=== PATIENT | female | born 1985 | race Caucasian/White ===

== ENCOUNTER 2016-07-05 09:05 | Day surgery (SDC) | payer MEDICAID ==
[2016-07-05 09:31] LABS: APPEARANCE,URINE CLOUDY; BILIRUBIN,URINE NEGATIVE (NEGATIVE); GLUCOSE, URINE NEGATIVE (NEGATIVE); KETONES,URINE NEGATIVE (NEGATIVE); LEUKOCYTE ESTERASE,URINE SMALL (NEGATIVE); NITRITE,URINE NEGATIVE (NEGATIVE); PROTEIN,URINE NEGATIVE (NEGATIVE); UROBILINOGEN,URINE NEGATIVE mg/dL (<2.0)
[2016-07-05] MEDS ORDERED: FAMOTIDINE INJ/PF 20 MG/2 ML SDV IV ONE (10:41)
[2016-07-05] MEDS ORDERED: ALBUTEROL SULFATE 0.083% NEB 2.5 MG/3 ML AMPUL NEB ONE (10:43)
[2016-07-05] MEDS ORDERED: SCOPOLAMINE HYDROBROMIDE 1.5 MG PATCH.TD72 ONE (10:44)
[2016-07-05] MEDS ORDERED: FENTANYL CITRATE INJ/PF 100 MCG/2 ML AMPUL ONE ×2 (10:46)
[2016-07-05] MEDS ORDERED: MIDAZOLAM 2 MG/2 ML INJ ONE (10:47)
[2016-07-05] MEDS ORDERED: PROPOFOL INJ 200 MG/20 ML VIAL IV ONE (10:47)
[2016-07-05 11:03] LABS: HEMATOCRIT 28.5 % (36.0-47.0); HEMOGLOBIN 9.2 g/dL (12.0-15.5); HGB HCT DIFFERENCE -0.9; MEAN CORPUSCULAR HEMOGLOBIN 23.6 pg (27.0-33.4); MEAN CORPUSCULAR HGB CONC 32.2 g/dL (32.0-36.0); MEAN CORPUSCULAR VOLUME 73 fl (80-97); RED CELL DISTRIBUTION WIDTH 15.8 % (11.5-14.0); WHITE BLOOD COUNT 6.4 10^3/uL (4.0-10.5)
--- NOTE | 2016-07-05 11:57 | Operative Report ---
Operative Report DATE OF SURGERY: 07/05/16 PREOPERATIVE DIAGNOSIS: Incomplete AB POSTOPERATIVE DIAGNOSIS: Same OPERATION: Suction D&C hysteroscopy SURGEON: SHAMA CHOE ANESTHESIA: GA TISSUE REMOVED OR ALTERED: Uterine contents COMPLICATIONS: None ESTIMATED BLOOD LOSS: 50 mL INTRAOPERATIVE FINDINGS: Retained contents and the uterus PROCEDURE: Patient was taken to the OR and placed in supine position. Gen. anesthesia was induced. She is placed in low dorsal lithotomy position. Her perineum and vagina were prepared and draped in sterile fashion. A weighted speculum was placed into the vagina and the anterior lip cervix was grasped with tenaculum. Sound was to 8 cm before and after the case. Hysteroscopy was attempted but too much blood was present and uterine cavity to obtain a picture. Next a size 8 suction curet was used to evacuate the uterine contents with a return of products of conception. A gentle sharp curettage was then performed. Hysteroscopy was attempted once again and the view showed an empty uterine cavity. All instruments were removed. Patient was placed back in supine position taken recovery room in stable condition.
[2016-07-05] MEDS ORDERED: ALBUTEROL SULFATE HFA (90 MCG/PUFF) 200 PUFF/8.5 GM MDI IH ONE (12:07)
[2016-07-05] MEDS ORDERED: IBUPROFEN 800 MG TABLET PO PRN (12:12)
[2016-07-05] MEDS ORDERED: RINGERS SOLUTION,LACTATED 1,000 ML IV PRN (12:12)
[2016-07-05] MEDS ORDERED: KETOROLAC TROMETHAMINE INJ/PF 30 MG/1 ML SDV IV PRN (12:12)
[2016-07-05] MEDS ORDERED: OXYCODONE-ACETAMINOPHEN 5-325 MG TABLET PO PRN ×3 (12:13→12:17)
[2016-07-05] MEDS ORDERED: FENTANYL CITRATE INJ/PF 100 MCG/2 ML AMPUL IV PRN ×3 (12:17)
[2016-07-05] MEDS ORDERED: PROMETHAZINE HCL INJ 25 MG/1 ML VIAL IV PRN ×2 (12:17)
[2016-07-05] MEDS ORDERED: DIPHENHYDRAMINE HCL 50 MG/ML VIAL IV PRN (12:17)
[2016-07-05] MEDS ORDERED: MEPERIDINE HCL/PF INJ 25 MG/1 ML DISP.SYRIN IV PRN (12:17)
[2016-07-05 14:49] VITALS: BP 105/63
[2016-07-05] MEDS ORDERED: SUCCINYLCHOLINE CHLORIDE INJ 200 MG/10 ML VIAL ONE (15:30)
[2016-07-05] MEDS ORDERED: DEXAMETHASONE SOD PHOSPHATE INJ 4 MG/1 ML VIAL ONE (15:30)
[2016-07-05] MEDS ORDERED: LIDOCAINE 2% INJ-PF (20 MG/ML) 10 ML AMPUL ONE (15:30)
[2016-07-05] MEDS ORDERED: KETOROLAC TROMETHAMINE 60 MG/2 ML SDV ONE (15:30)
[2016-07-05] MEDS ORDERED: ONDANSETRON HCL INJ/PF 4 MG/2 ML SDV ONE (15:30)
== END 2016-07-05 14:40 | disposition home or self-care (01) ==
LOC: OROUT 09:05
PROVIDERS: ATTEND Obstetrics & Gynecology
PROC: 0UDB8ZX Extraction of Endometrium, Via Natural or Artificial Opening Endoscopic, Diagnostic (ICD-10-PCS; principal; 2016-07-05 11:00)
DX: O03.4 Incomplete spontaneous abortion without complication (principal); N93.8 Other specified abnormal uterine and vaginal bleeding; J45.909 Unspecified asthma, uncomplicated; I10 Essential (primary) hypertension; F17.210 Nicotine dependence, cigarettes, uncomplicated; Z79.899 Other long term (current) drug therapy; Z88.5 Allergy status to narcotic agent
CPT/HCPCS: 86900; 86901; 36415; 86850; 85027; 81025; 81001; 88305 ×2; 94640; 59812; J2250; J1100; J1885; J3010; J3490 ×3; J0330; J2405; J2704; S0028

== ENCOUNTER 2016-12-26 10:28 | Emergency (ER) | payer SELFPAY ==
[2016-12-26] MEDS ORDERED: IPRATROPIUM/ALBUTEROL 0.5-2.5 MG/3 ML AMPUL NEB ONE (10:51)
[2016-12-26] MEDS ORDERED: ACETAMINOPHEN 325 MG TABLET PO PRN (10:54)
--- NOTE | 2016-12-26 11:03 | ER Document Report ---
ED General - General Chief Complaint: Abdominal Pain Stated Complaint: ABDOMINAL PAIN Time Seen by Provider: 12/26/16 10:47 TRAVEL OUTSIDE OF THE U.S. IN LAST 30 DAYS: No - HPI Patient complains to provider of: Abdominal pain positive chest congestion Notes: Patient coming in for abdominal pain states ongoing for the last few days also states congestion for the last 3 days denies fevers chills nausea vomiting or productive cough. Patient does smoke. Patient states currently trying to quit no care for this visit. No complications of previous pregnancies no vaginal bleeding. States diffuse abdominal pain. No dysuria - Related Data Allergies/Adverse Reactions: codeine [Codeine] Adverse Reaction (Intermediate, Verified 04/22/15 11:58) Past Medical History - Social History Smoking Status: Current Every Day Smoker Chew tobacco use (# tins/day): - 1/2 ppd Frequency of alcohol use: Rare Drug Abuse: None Family History: Reviewed & Not Pertinent - Past Medical History Cardiac Medical History: Denies: Hx Coronary Artery Disease, Hx Heart Attack, Hx Hypertension Pulmonary Medical History: Reports: Hx Asthma Denies: Hx Bronchitis, Hx COPD, Hx Pneumonia Neurological Medical History: Denies: Hx Cerebrovascular Accident, Hx Seizures Renal/ Medical History: Denies: Hx Peritoneal Dialysis Musculoskeltal Medical History: Denies Hx Arthritis Past Surgical History: Reports: Hx Gynecologic Surgery - d&c (April 2013) - Immunizations Immunizations up to date: Yes Hx Diphtheria, Pertussis, Tetanus Vaccination: Yes Hx Pneumococcal Vaccination: 09/13/11 Review of Systems - Review of Systems Constitutional: No symptoms reported EENT: No symptoms reported Cardiovascular: No symptoms reported Respiratory: No symptoms reported Gastrointestinal: Abdominal pain Genitourinary: No symptoms reported Female Genitourinary: No symptoms reported Musculoskeletal: No symptoms reported Skin: No symptoms reported Hematologic/Lymphatic: No symptoms reported Neurological/Psychological: No symptoms reported -: Yes All other systems reviewed and negative Physical Exam - Vital signs Vitals: Temp Pulse Resp BP Pulse Ox 98.9 F 66 16 123/69 100 12/26/16 10:30 12/26/16 10:30 12/26/16 10:30 12/26/16 10:30 12/26/16 10:30 Interpretation: Normal - General General appearance: Appears well, Alert - HEENT Head: Normocephalic, Atraumatic Eyes: Normal Pupils: PERRL - Respiratory Respiratory status: No respiratory distress Chest status: Nontender Breath sounds: Wheezing Chest palpation: Normal - Cardiovascular Rhythm: Regular Heart sounds: Normal auscultation Murmur: No - Abdominal Inspection: Normal Distension: No distension Bowel sounds: Normal Tenderness: Nontender Organomegaly: No organomegaly - Back Back: Normal, Nontender - Extremities General upper extremity: Normal inspection, Nontender, Normal color, Normal ROM , Normal temperature General lower extremity: Normal inspection, Nontender, Normal color, Normal ROM , Normal temperature, Normal weight bearing. No: Jung's sign - Neurological Neuro grossly intact: Yes Cognition: Normal Orientation: AAOx4 [place] Coma Scale Eye Opening: Spontaneous [place] Coma Scale Verbal: Oriented [place] Coma Scale Motor: Obeys Commands [place] Coma Scale Total: 15 Speech: Normal Motor strength normal: LUE, RUE, LLE, RLE Sensory: Normal - Psychological Associated symptoms: Normal affect, Normal mood - Skin Skin Temperature: Warm Skin Moisture: Dry Skin Color: Normal Course - Re-evaluation Re-evalutation: 12/26/16 11:01 We will check basic lab work urinalysis ultrasound patient does have wheezing on examination we will give DuoNeb. 12/26/16 17:22 Ultrasound shows 7 week fetus. Patient was given copy of her lab results recommend stop smoking. Patient will be given a bronchodilator for home patient was discharged home - Vital Signs Vital signs: Temp Pulse Resp BP Pulse Ox 98.9 F 66 16 123/69 100 12/26/16 10:30 12/26/16 10:30 12/26/16 10:30 12/26/16 10:30 12/26/16 10:30 - Laboratory Result Diagrams: 12/26/16 10:56 12/26/16 10:56 Laboratory results interpreted by me: 12/26/16 12/26/16 12/26/16 10:56 10:56 10:56 WBC 11.2 H Hgb 11.2 L Hct 34.7 L MCV 70 L MCH 22.7 L RDW 18.3 H Creatinine 0.48 L Beta HCG, Quant 357346.00 H Ur Leukocyte Esterase TRACE H Discharge - Discharge Clinical Impression: Smoker, Wheezing Qualifiers: Weeks of gestation: less than 8 weeks Qualified Code(s): Z3A.01 - Less than 8 weeks gestation of Condition: Good Disposition: HOME, SELF-CARE Instructions: Inhaled Bronchodilators ([facility]), ([facility]), Stop Smoking ([facility] ) Prescriptions: Albuterol Sulfate [Proair HFA] 1 - 2 puff IH Q4 PRN #1 inhaler PRN Reason: Vit,Calc78/Iron/Folic [Prenatabs Fa Tablet] 1 each PO DAILY #30 tablet Forms: Return to Work, Smoking Cessation Education
[2016-12-26 11:23] LABS: ABSOLUTE BASOPHILS # (AUTO) 0.1 10^3/uL (0.0-0.2); ABSOLUTE EOSINOPHILS # (AUTO) 0.1 10^3/uL (0.0-0.6); ABSOLUTE LYMPHOCYTES (AUTO) 2.3 10^3/uL (0.5-4.7); ABSOLUTE MONOCYTES (AUTO) 0.9 10^3/uL (0.1-1.4); ABSOLUTE NEUT (AUTO) 7.8 10^3/uL (1.7-8.2); AMORPHOUS SEDIMENT,URINE TRACE /HPF; APPEARANCE,URINE CLOUDY; BASOPHILS % (AUTO) 0.7 % (0-2); BILIRUBIN,URINE NEGATIVE (NEGATIVE); EOSINOPHILS % (AUTO) 1.1 % (0-6); GLUCOSE, URINE NEGATIVE (NEGATIVE); HEMATOCRIT 34.7 % (36.0-47.0); HEMOGLOBIN 11.2 g/dL (12.0-15.5); HGB HCT DIFFERENCE -1.1; KETONES,URINE NEGATIVE (NEGATIVE); LEUKOCYTE ESTERASE,URINE TRACE (NEGATIVE); LYMPHOCYTES % (AUTO) 20.9 % (13-45); MEAN CORPUSCULAR HEMOGLOBIN 22.7 pg (27.0-33.4); MEAN CORPUSCULAR HGB CONC 32.2 g/dL (32.0-36.0); MEAN CORPUSCULAR VOLUME 70 fl (80-97); MONOCYTES % (AUTO) 7.7 % (3-13); NITRITE,URINE NEGATIVE (NEGATIVE); PROTEIN,URINE NEGATIVE (NEGATIVE); RED BLOOD COUNT 4.94 10^6/uL (3.72-5.28); RED CELL DISTRIBUTION WIDTH 18.3 % (11.5-14.0); SEGMENTED NEUTROPHILS % (AUTO) 69.6 % (42-78); URINE SPECIFIC GRAVITY 1.016; UROBILINOGEN,URINE NEGATIVE mg/dL (<2.0); WHITE BLOOD COUNT 11.2 10^3/uL (4.0-10.5)
[2016-12-26 11:40] LABS: ANION GAP 12 (5-19); BLOOD UREA NITROGEN 7 mg/dL (7-20); CALCIUM 9.8 mg/dL (8.4-10.2); CARBON DIOXIDE 22 mmol/L (22-30); CHLORIDE 104 mmol/L (98-107); CREATININE RESULT 0.48 mg/dL (0.52-1.25); GLUCOSE 97 mg/dL (75-110); POTASSIUM 4.1 mmol/L (3.6-5.0); SODIUM 138.2 mmol/L (137-145)
--- NOTE | 2016-12-26 12:56 | RADIOLOGY REPORT (SQ) ---
EXAM DESCRIPTION: U/S OB TRANSVAG W/DOPPLER COMPLETED DATE/TIME: 12/26/2016 12:45 pm REASON FOR STUDY: abd pain preg+ COMPARISON: None. TECHNIQUE: Transvaginal static and realtime grayscale images acquired of the pelvis. Additional elvira cted spectral and color Doppler images recorded. All images stored on PACs. bHCG: Pending. LIMITATIONS: None. FINDINGS: FETUS: Living intrauterine . EGA: 7 week 4 day. LAURA: 08/10/2017. FHR: 139 beats per minute. SUBCHORIONIC BLEED: Yes. SIZE OF BLEED: 1.0 x 1.5 x 1.8 cm. UTERUS: No masses. No anomalies. CERVICAL LENGTH: 2.6 cm. Closed. RIGHT ADNEXA: Normal ovary with normal vascular flow. No adnexal free fluid. No adnexal masses. LEFT ADNEXA: Normal ovary with normal vascular flow. No adnexal free fluid. Corpus Luteum measuring 2.3 cm. FREE FLUID: None. OTHER: No other significant finding. IMPRESSION: LIVING INTRAUTERINE . EGA 7 WEEK 4 DAY. 1.0 X 1.5 X 1.8 CM SUBCHORIONIC BLEED. Trimester of : First - 0 to 13 weeks. TECHNICAL DOCUMENTATION: JOB ID: [id number] [employer]- All Rights Reserved
[2016-12-26] MEDS ORDERED: ALBUTEROL SULFATE HFA (90 MCG/PUFF) 8 GM MDI (1 MDI/ER DISP) IH ONE (13:10)
[2016-12-26 13:24] VITALS: BP 113/70
== END 2016-12-26 13:19 | disposition home or self-care (01) ==
LOC: ER 10:28
DX: R06.2 Wheezing (principal); Z3A.01 Less than 8 weeks gestation of pregnancy; R10.9 Unspecified abdominal pain; R09.89 Other specified symptoms and signs involving the circulatory and respiratory systems; F17.210 Nicotine dependence, cigarettes, uncomplicated
CPT/HCPCS: 99285; 36415; 84702; 85025; 80048; 81001; 76817; 93976; J3490; J7620

== ENCOUNTER 2017-01-05 12:31 | Emergency (ER) | payer SELFPAY ==
[2017-01-05 12:40] VITALS: BP 117/62
--- NOTE | 2017-01-05 13:23 | ER Document Report ---
ED Medical Screen (RME) - General Chief Complaint: Vaginal Bleeding Stated Complaint: ABDOMINAL PAIN,CHILLS,DIZZY Time Seen by Provider: 01/05/17 13:22 Notes: Patient was approximately 8 weeks . She presents with increased abdominal pain and vaginal bleeding since yesterday. She was seen here approximately 1 week ago and at that time had a ultrasound that showed a 7 week 4 day IUP with a heart rate of 139. TRAVEL OUTSIDE OF THE [place] IN LAST 30 DAYS: No - Related Data Allergies/Adverse Reactions: codeine [Codeine] Adverse Reaction (Intermediate, Verified 01/05/17 12:38) Past Medical History - General Last Menstrual Period: 11/03/2016 - Social History Chew tobacco use (# tins/day): No Frequency of alcohol use: None Drug Abuse: None - Past Medical History Cardiac Medical History: Denies: Hx Coronary Artery Disease, Hx Heart Attack, Hx Hypertension Pulmonary Medical History: Reports: Hx Asthma Denies: Hx Bronchitis, Hx COPD, Hx Pneumonia Neurological Medical History: Denies: Hx Cerebrovascular Accident, Hx Seizures Renal/ Medical History: Denies: Hx Peritoneal Dialysis Musculoskeltal Medical History: Denies Hx Arthritis Past Surgical History: Reports: Hx Gynecologic Surgery - d&c (April 2013) - Immunizations Immunizations up to date: Yes Hx Diphtheria, Pertussis, Tetanus Vaccination: Yes Physical Exam - Vital signs Vitals: Temp Pulse Resp BP Pulse Ox 99.8 F 88 20 117/62 96 01/05/17 12:39 01/05/17 12:39 01/05/17 12:39 01/05/17 12:39 01/05/17 12:39 Course - Vital Signs Vital signs: Temp Pulse Resp BP Pulse Ox 99.8 F 88 20 117/62 96 01/05/17 12:39 01/05/17 12:39 01/05/17 12:39 01/05/17 12:39 01/05/17 12:39
== END 2017-01-05 13:35 | disposition left against medical advice (07) ==
LOC: ER 12:31
DX: O20.9 Hemorrhage in early pregnancy, unspecified (principal); O26.891 Other specified pregnancy related conditions, first trimester; R10.9 Unspecified abdominal pain; O99.511 Diseases of the respiratory system complicating pregnancy, first trimester; J45.909 Unspecified asthma, uncomplicated; Z3A.08 8 weeks gestation of pregnancy; Z53.20 Procedure and treatment not carried out because of patient's decision for unspecified reasons
CPT/HCPCS: 99281

== ENCOUNTER 2017-06-18 14:02 | Emergency (ER) | payer MEDICAID ==
[2017-06-18 14:17] VITALS: BP 123/71
[2017-06-18] MEDS ORDERED: LIDOCAINE 2% VISCOUS SOLN 20 ML UDCUP PO ONE (16:21)
[2017-06-18] MEDS ORDERED: PENICILLIN V POTASSIUM 500 MG TABLET PO ONE (16:21)
[2017-06-18] MEDS ORDERED: IBUPROFEN 600 MG TABLET PO ONE (16:21)
--- NOTE | 2017-06-18 16:24 | ER Document Report ---
ED Oral Problem - General Chief Complaint: Toothache Stated Complaint: POSSIBLE ABSCESS Time Seen by Provider: 06/18/17 16:11 Mode of Arrival: Ambulatory Information source: Patient Notes: 32-year-old female presents to ED for dental pain to the right upper molar. She states she possibly has a mole abscess. She states there was drainage did look like pus from this area. She states the pain started 3 days ago. She denies any fevers. She has an appointment with dentist on Tuesday. TRAVEL OUTSIDE OF THE [place] IN LAST 30 DAYS: No - HPI Patient complains to provider of: Toothache Onset: Other Onset: Gradual - Worse the last couple days but is been no longer Quality of pain: Pressure, Sharp Severity: Severe Pain Level: 5 Associated symptoms: Toothache Worsened by: Cold Relieved by: Nothing Similar symptoms previously: Yes Recently seen / treated by doctor/dentist: No - Related Data Allergies/Adverse Reactions: codeine [Codeine] Adverse Reaction (Intermediate, Verified 01/05/17 12:38) Past Medical History - General Information source: Patient - Social History Smoking Status: Current Every Day Smoker Cigarette use (# per day): Yes - Half pack per day Chew tobacco use (# tins/day): No Smoking Education Provided: Yes - 4 minutes Frequency of alcohol use: None Drug Abuse: None Occupation: Housekeeping Lives with: Spouse/Significant other Family History: COPD, Hypertension, Malignancy. denies: Arthritis, CAD, CVA, DM , Hyperlipidemia, Thyroid Disfunction Patient has suicidal ideation: No Patient has homicidal ideation: No - Past Medical History Cardiac Medical History: Reports: None Pulmonary Medical History: Reports: Hx Asthma EENT Medical History: Reports: None Neurological Medical History: Reports: None Endocrine Medical History: Reports: None Renal/ Medical History: Reports: None Malignancy Medical History: Reports: None GI Medical History: Reports: None Musculoskeltal Medical History: Reports None Skin Medical History: Reports None Psychiatric Medical History: Reports: None Traumatic Medical History: Reports: None Infectious Medical History: Reports: None Past Surgical History: Reports: Hx Gynecologic Surgery - d&c (April 2013) - Immunizations Immunizations up to date: Yes Hx Diphtheria, Pertussis, Tetanus Vaccination: Yes Hx Pneumococcal Vaccination: 09/13/11 Review of Systems - Review of Systems Constitutional: No symptoms reported EENT: Dental problem Cardiovascular: No symptoms reported Respiratory: No symptoms reported Gastrointestinal: No symptoms reported Genitourinary: No symptoms reported Female Genitourinary: No symptoms reported Musculoskeletal: No symptoms reported Skin: No symptoms reported Hematologic/Lymphatic: No symptoms reported Neurological/Psychological: No symptoms reported -: Yes All other systems reviewed and negative Physical Exam - Vital signs Vitals: Temp Pulse Resp BP Pulse Ox 98.5 F 62 16 123/71 96 06/18/17 14:15 06/18/17 14:15 06/18/17 14:15 06/18/17 14:15 06/18/17 14:15 Interpretation: Normal - General General appearance: Appears well, Alert - HEENT Head: Normocephalic, Atraumatic Eyes: Normal Pupils: PERRL Ears: Normal External canal: Normal Tympanic membrane: Normal Sinus: Normal Nasal: Normal Mouth/Lips: Caries - Gingivitis around cavity to right upper molar no abscess noted no pus noted the area is red around the tooth. Mucous membranes: Normal Pharynx: Normal Neck: Normal - Respiratory Respiratory status: No respiratory distress Chest status: Nontender Breath sounds: Normal Chest palpation: Normal - Cardiovascular Rhythm: Regular Heart sounds: Normal auscultation Murmur: No - Abdominal Inspection: Normal Distension: No distension Bowel sounds: Normal Tenderness: Nontender Organomegaly: No organomegaly - Back Back: Normal, Nontender - Extremities General upper extremity: Normal inspection, Nontender, Normal color, Normal ROM , Normal temperature General lower extremity: Normal inspection, Nontender, Normal color, Normal ROM , Normal temperature, Normal weight bearing. No: Jung's sign - Neurological Neuro grossly intact: Yes Cognition: Normal Orientation: AAOx4 [place] Coma Scale Eye Opening: Spontaneous Fred Coma Scale Verbal: Oriented [place] Coma Scale Motor: Obeys Commands [place] Coma Scale Total: 15 Speech: Normal Motor strength normal: LUE, RUE, LLE, RLE Sensory: Normal - Psychological Associated symptoms: Normal affect, Normal mood - Skin Skin Temperature: Warm Skin Moisture: Dry Skin Color: Normal Course - Re-evaluation Re-evalutation: 06/19/17 01:41 Patient treated with Penicillin VK, lidocaine jelly, and ibuprofen for her dental pain and infection. Patient was discharged home with prescription for Penicillin VK and a syringe of viscous lidocaine. Patient to follow-up with a dentist to have the tooth repaired as per schedule. - Vital Signs Vital signs: Temp Pulse Resp BP Pulse Ox 98.5 F 62 16 123/71 96 06/18/17 14:15 06/18/17 14:15 06/18/17 14:15 06/18/17 14:15 06/18/17 14:15 Discharge - Discharge Clinical Impression: Pain due to dental caries Condition: Stable Disposition: HOME, SELF-CARE Instructions: Family Physicians / Practices Additional Instructions: TOOTHACHE: Your pain is due to dental decay. The tooth must be repaired in order for you to feel better. You will, therefore, be referred to a dentist. We do not have dentists on the staff at [facility]. Severe swelling or drainage around a tooth usually means a dental abscess. This also requires evaluation and treatment by the dentist, but antibiotics may be prescribed while awaiting dental treatment. You should be rechecked immediately if you develop major swelling of the face, increasing pain, a lump in the jaw or gums, headache, difficulty swallowing, or fever. ORAL NARCOTIC MEDICATION: You have been given a prescription for pain control. This medication is a narcotic. It's best taken with food, as nausea can result if taken on an empty stomach. Don't operate machinery or drive within six hours of taking this medication. Do not combine this medicine with alcohol, or with any medication which can cause sedation (such as cold tablets or sleeping pills) unless you get permission from the physician. Narcotics tend to cause constipation. If possible, drink plenty of fluids and eat a diet high in fiber and fruits. Please be aware that prescription narcotics also have the potential for abuse. People become addicted to these medications because of the general sense of wellbeing that they induce. This feeling along with a significant reduction in tension, anxiety, and aggression provides a stimulating seductive quality to these drugs. Once your pain is under control, we encourage you to discard your unused narcotics. PENICILLIN V K: You have been given a prescription for Penicillin VK. Your physician has determined that this is the best antibiotic for your condition. Pen VK can be taken with meals, however more of the antibiotic gets into the bloodstream if it's taken on an empty stomach. Penicillin usually has no side effects. However, allergy to penicillins is common. If you have had an allergic reaction to any drug of the penicillin family, you should never take any other penicillin. Notify your doctor at once if you develop hives, itching, swelling, faintness, or shortness of breath. FOLLOW-UP CARE: You have been referred for follow-up care to the dentists listed below. Call the dentists office for an appointment as you were instructed or within the next two days. If you experience worsening or a significant change in your symptoms, notify the physician immediately or return to the Emergency Department at any time for re-evaluation. [facility] [address] [place], [place] [phone] [facility] [address] [place] [address] [facility] [address] [facility] [address] [facility] [address] [email or web address] [address] [place] [address] Tuesday- 8:00am to 5:00 pm Will see patients from other [facility]. Charges based on income and family size and accepts Medicare, Medicaid, and Insurances Will pull molars [facility] [id number] Hours of Operation 8:00 am - 4:30 pm weekdays The following dental offices accept Medicaid: [facility] Dr. Hicks Dr[address] Reeves Dr. Helm Dr. Lopes Arnaldo Crespo, Christina, and Blanche oral surgery Dr. Cash ([place]) Dr. Terrazas ([place]) [facility] Drs. Reynoso and Oscar ([place]) Dr. Mullins ([place]) [facility] Dr. Lowe ([place]) Drs. Garcia and ([place]) Medicaid Care Line Prescriptions: Penicillin V Potassium [Penicillin Vk 500 mg Tablet] 500 mg PO BID #20 tablet Forms: Smoking Cessation Education, Return to Work
== END 2017-06-18 16:43 | disposition home or self-care (01) ==
LOC: ER 14:02
DX: K02.9 Dental caries, unspecified (principal); K05.10 Chronic gingivitis, plaque induced; K04.7 Periapical abscess without sinus; K08.89 Other specified disorders of teeth and supporting structures; J45.909 Unspecified asthma, uncomplicated; F17.210 Nicotine dependence, cigarettes, uncomplicated; Z71.6 Tobacco abuse counseling
CPT/HCPCS: 99406; 99282; J3490 ×3

== ENCOUNTER 2017-07-28 18:11 | Emergency (ER) | payer OTHER, MEDICAID ==
[2017-07-28] MEDS ORDERED: ACETAMINOPHEN 325 MG TABLET PO ONE (20:10)
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
[2017-07-28 21:41] VITALS: BP 108/79
== END 2017-07-28 21:41 | disposition home or self-care (01) ==
LOC: ER 18:11
DX: S16.1XXA Strain of muscle, fascia and tendon at neck level, initial encounter (principal); S29.019A Strain of muscle and tendon of unspecified wall of thorax, initial encounter; S06.9X1A Unspecified intracranial injury with loss of consciousness of 30 minutes or less, initial encounter; V43.52XA Car driver injured in collision with other type car in traffic accident, initial encounter; F17.200 Nicotine dependence, unspecified, uncomplicated; Z88.6 Allergy status to analgesic agent
CPT/HCPCS: 70450; 72070; 72125; 99284

== ENCOUNTER 2017-07-29 18:06 | Emergency (ER) | payer OTHER, MEDICAID ==
[2017-07-29] MEDS ORDERED: ACETAMINOPHEN 325 MG TABLET PO ONE (18:42)
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
--- NOTE | 2017-07-29 19:35 | RADIOLOGY REPORT (SQ) ---
EXAM DESCRIPTION: CERV SP 4 OR 5 VIEWS COMPLETED DATE/TIME: 07/29/2017 7:19 pm REASON FOR STUDY: cervical pain COMPARISON: None. NUMBER OF VIEWS: Five views. TECHNIQUE: AP, lateral, obliques and odontoid radiographic images acquired of the cervical spine. LIMITATIONS: None. FINDINGS: MINERALIZATION: Normal. ALIGNMENT: Anatomic. VERTEBRAE: Vertebral bodies of normal height. DISCS: No significant osteophytes or sclerosis. Disc height maintained. FORAMINA: No osteophytes or foraminal narrowing. LATERAL AND POSTERIOR ELEMENTS: Facets, lateral masses and spinous processes without significant find ings. HARDWARE: None in the spine. SOFT TISSUES: No masses or calcifications. Lung apices clear. OTHER: No other significant finding. IMPRESSION: NO SIGNIFICANT RADIOGRAPHIC FINDING IN THE CERVICAL SPINE. TECHNICAL DOCUMENTATION: JOB ID: [id number] [employer]- All Rights Reserved Reading location - IP/workstation name: [email or web address]
[2017-07-29 20:30] VITALS: BP 116/81
== END 2017-07-29 20:31 | disposition home or self-care (01) ==
LOC: ER 18:06
DX: S06.0X0A Concussion without loss of consciousness, initial encounter (principal); S16.1XXA Strain of muscle, fascia and tendon at neck level, initial encounter; R10.9 Unspecified abdominal pain; F17.210 Nicotine dependence, cigarettes, uncomplicated; V89.2XXA Person injured in unspecified motor-vehicle accident, traffic, initial encounter; Z88.6 Allergy status to analgesic agent
CPT/HCPCS: 70450; 72050; 99284

== ENCOUNTER 2017-12-12 13:08 | Emergency (ER) | payer MEDICAID, OTHER ==
[2017-12-12 13:19] VITALS: BP 122/69
--- NOTE | 2017-12-12 13:49 | ER Document Report ---
HPI - HPI Patient complains to provider of: dental pain Onset: Yesterday Onset/Duration: Gradual Pain Level: 5 Context: 32 yo female c/o left lower frontal dental pain and decay, knows there is infection. No fever. Has appt this week. Associated Symptoms: None Exacerbated by: Denies Relieved by: Denies - ROS ROS below otherwise negative: Yes Systems Reviewed and Negative: Yes All other systems reviewed and negative - REPRODUCTIVE Reproductive: REPORTS: : Past Medical History - General Information source: Patient - Social History Smoking Status: Current Every Day Smoker Chew tobacco use (# tins/day): No Frequency of alcohol use: None Drug Abuse: None Lives with: Spouse/Significant other Family History: COPD, Hypertension, Malignancy Patient has suicidal ideation: No Patient has homicidal ideation: No Pulmonary Medical History: Reports: Hx Asthma Renal/ Medical History: Denies: Hx Peritoneal Dialysis Surgical Hx: Negative Past Surgical History: Reports: Hx Gynecologic Surgery - d&c (April 2013) - Immunizations Immunizations up to date: Yes Hx Diphtheria, Pertussis, Tetanus Vaccination: Yes Hx Pneumococcal Vaccination: 09/13/11 Vertical Provider Document - CONSTITUTIONAL Agree With Documented VS: Yes Exam Limitations: No Limitations General Appearance: No Apparent Distress - INFECTION CONTROL TRAVEL OUTSIDE OF THE [place] IN LAST 30 DAYS: No - HEENT Notes: multiple decayed teeth with retracted gingiva, tender below lateral left lower incisor - NECK Neck: Supple. negative: Lymphadenopathy-Left, Lymphadenopathy-Right Course - Vital Signs Vital signs: Temp Pulse Resp BP Pulse Ox 98.3 F 65 18 122/69 96 12/12/17 13:17 12/12/17 13:17 12/12/17 13:17 12/12/17 13:17 12/12/17 13:17 Discharge - Discharge Clinical Impression: dental infection decay Condition: Good Disposition: HOME, SELF-CARE Instructions: Acetaminophen, Dentist, Ibuprofen (General) ([facility]), Topical Lidocaine ([facility]), Warm Packs ([facility]) Additional Instructions: warm compess tylenol up to 4000 mg a day for pain Ibuprofen 600 mg 3 times a day for pain Return to the emergency room if worse See the dentist Lidocaine to numb the area Penicillin until it is gone Prescriptions: Ibuprofen [Motrin 600 mg Tablet] 600 mg PO Q8HP PRN #30 tablet PRN Reason: Penicillin V Potassium [Penicillin Vk 500 mg Tablet] 500 mg PO QID #40 tablet
[2017-12-12] MEDS ORDERED: LIDOCAINE 2% VISCOUS SOLN 20 ML UDCUP PO ONE (13:55)
== END 2017-12-12 14:14 | disposition home or self-care (01) ==
LOC: ER 13:08
DX: K04.7 Periapical abscess without sinus (principal); K02.9 Dental caries, unspecified; F17.210 Nicotine dependence, cigarettes, uncomplicated
CPT/HCPCS: 99282; J3490

== ENCOUNTER 2018-12-01 14:04 | Emergency (ER) | payer MEDICAID, OTHER ==
[2018-12-01 14:14] VITALS: BP 126/80
--- NOTE | 2018-12-01 15:41 | ER Document Report ---
HPI - HPI Time Seen by Provider: 12/01/18 15:24 Pain Level: 5 Notes: Patient is an otherwise healthy 33-year-old female presented to the emergency department chief complaint of right upper dental pain. Patient reports pain started approximately 2 days ago. She denies any fevers or drainage from the area. - REPRODUCTIVE Reproductive: DENIES: : Past Medical History - General Information source: Patient - Social History Smoking Status: Never Smoker Frequency of alcohol use: None Drug Abuse: None Family History: COPD, Hypertension, Malignancy - Past Medical History Cardiac Medical History: Denies: Hx Coronary Artery Disease, Hx Heart Attack, Hx Hypertension Pulmonary Medical History: Reports: Hx Asthma Denies: Hx Bronchitis, Hx COPD, Hx Pneumonia Neurological Medical History: Denies: Hx Cerebrovascular Accident, Hx Seizures Renal/ Medical History: Denies: Hx Peritoneal Dialysis Musculoskeletal Medical History: Denies Hx Arthritis Past Surgical History: Reports: Hx Gynecologic Surgery - d&c (April 2013) - Immunizations Immunizations up to date: Yes Hx Diphtheria, Pertussis, Tetanus Vaccination: Yes Hx Pneumococcal Vaccination: 09/13/11 Vertical Provider Document - CONSTITUTIONAL Notes: PHYSICAL EXAMINATION: GENERAL: Well-appearing, well-nourished and in no acute distress. HEAD: Atraumatic, normocephalic. EYES: Pupils equal round extraocular movements intact, conjunctiva are normal. ENT: Nares patent, erythema noted to gumline around tooth #2 and 3, dental caries noted, no drainable abscess identified. NECK: Normal range of motion LUNGS: No respiratory distress Musculoskeletal: Normal range of motion NEUROLOGICAL: Normal speech, normal gait. PSYCH: Normal mood, normal affect. SKIN: Warm, Dry, normal turgor, no rashes or lesions noted. - INFECTION CONTROL TRAVEL OUTSIDE OF THE [place] IN LAST 30 DAYS: No Course - Re-evaluation Re-evalutation: Presentation is most consistent with likely an infected tooth. Airway is patent. Vitals within normal limits. Patient is able swallow without any difficulty. There is no significant facial swelling. No evidence of Jose Alberto angina, apical abscess, or airway obstruction. Patient will be started on antibiotics. I've instructed to follow-up with dentistry as earliest ability for definitive management. At this time will discharge with return precautions and follow-up recommendations. Verbal discharge instructions given a the bedside and opportunity for questions given. Medication warnings reviewed. Patient is in agreement with this plan and has verbalized understanding of return precautions and the need for primary care follow-up in the next 24-72 hours. - Vital Signs Vital signs: Temp Pulse Resp BP Pulse Ox 98.1 F 70 15 126/80 H 96 12/01/18 14:14 12/01/18 14:14 12/01/18 14:14 12/01/18 14:14 12/01/18 14:14 Discharge - Discharge Clinical Impression: Dental infection Condition: Stable Disposition: HOME, SELF-CARE Additional Instructions: You have been seen for dental pain. It is very important that you follow-up with a dentist for definitive care. Please return if you develop fever greater than 101, swelling in your face, vomiting, difficulty breathing or swallowing, or any other symptoms that are concerning to you. For pain you should take ibuprofen 600 mg every 6 hours as needed. Keep the appointment you have scheduled with your dentist for . Prescriptions: Penicillin V Potassium [Penicillin Vk 500 mg Tablet] 500 mg PO BID #20 tablet
== END 2018-12-01 16:00 | disposition home or self-care (01) ==
LOC: ER 14:04
DX: K04.7 Periapical abscess without sinus (principal); K02.9 Dental caries, unspecified; K08.89 Other specified disorders of teeth and supporting structures; J45.909 Unspecified asthma, uncomplicated
CPT/HCPCS: 99282

== ENCOUNTER 2020-05-05 22:50 | Emergency (ER) | payer MEDICAID ==
--- NOTE | 2020-05-05 23:43 | ER Document Report ---
ED Medical Screen (RME) - General Chief Complaint: Trouble Voiding Stated Complaint: DIFFICULTY URINATING Time Seen by Provider: 05/05/20 23:37 Mode of Arrival: Ambulatory Information source: Patient Notes: HPI; 35-year-old female presents to the emergency room complaining of urinary retention. States she has been unable to urinate since around 2 PM today. Complains of nausea nausea, but denies any vomiting. Patient states she had some teeth pulled a week ago and has been taking Vicodin and has not been able to have a bowel movement. States she took a laxative today and had a bowel m ovement around 2 PM and now cannot urinate. PE: Alert and oriented x3. Lungs: Clear to auscultation without rales, rhonchi, wheezes. Heart: Regular rate rhythm without murmurs, rubs, gallops. I have greeted and performed a rapid initial assessment of this patient. A comprehensive ED assessment and evaluation of the patient, analysis of test results and completion of the medical decision making process will be conducted by additional ED providers. I have specifically instructed the patient or family members with the patient to immediately return to any nursing staff should anything change in the patient's condition or with their chief complaint. TRAVEL OUTSIDE OF THE [place] IN LAST 30 DAYS: No - Related Data Allergies/Adverse Reactions: codeine [Codeine] Adverse Reaction (Intermediate, Verified 05/05/20 23:37) Past Medical History - Past Medical History Cardiac Medical History: Denies: Hx Coronary Artery Disease, Hx Heart Attack, Hx Hypertension Pulmonary Medical History: Reports: Hx Asthma Denies: Hx Bronchitis, Hx COPD, Hx Pneumonia Neurological Medical History: Denies: Hx Cerebrovascular Accident, Hx Seizures Renal/ Medical History: Denies: Hx Peritoneal Dialysis Musculoskeltal Medical History: Denies Hx Arthritis Past Surgical History: Reports: Hx Gynecologic Surgery - d&c (April 2013) - Immunizations Immunizations up to date: Yes Hx Diphtheria, Pertussis, Tetanus Vaccination: Yes Physical Exam - Vital signs Vitals: Temp Pulse Resp BP Pulse Ox 98.5 F 71 16 128/86 H 95 05/05/20 22:59 05/05/20 22:59 05/05/20 22:59 05/05/20 22:59 05/05/20 22:59 Course - Vital Signs Vital signs: Temp Pulse Resp BP Pulse Ox 98.5 F 71 16 128/86 H 95 05/05/20 22:59 05/05/20 22:59 05/05/20 22:59 05/05/20 22:59 05/05/20 22:59
[2020-05-06 00:19] LABS: APPEARANCE,URINE CLEAR; BILIRUBIN,URINE NEGATIVE (NEGATIVE); COLOR,URINE YELLOW; GLUCOSE, URINE NEGATIVE (NEGATIVE); KETONES,URINE NEGATIVE (NEGATIVE); LEUKOCYTE ESTERASE,URINE NEGATIVE (NEGATIVE); NITRITE,URINE NEGATIVE (NEGATIVE); PROTEIN,URINE NEGATIVE (NEGATIVE); URINE SPECIFIC GRAVITY 1.006; UROBILINOGEN,URINE NEGATIVE mg/dL (<2.0)
[2020-05-06] MEDS ORDERED: NORMAL SALINE 1000 ML 1,000 ML IV ONE (01:10)
[2020-05-06 01:35] LABS: ABSOLUTE BASOPHILS # (AUTO) 0.1 10^3/uL (0.0-0.2); ABSOLUTE LYMPHOCYTES (AUTO) 1.6 10^3/uL (0.5-4.7); ABSOLUTE NEUT (AUTO) 17.2 10^3/uL (1.7-8.2); BASOPHILS % (AUTO) 0.5 % (0-2); EOSINOPHILS % (AUTO) 0.1 % (0-6); HEMATOCRIT 41.5 % (36.0-47.0); HEMOGLOBIN 13.4 g/dL (12.0-15.5); MEAN CORPUSCULAR HEMOGLOBIN 25.5 pg (27.0-33.4); MEAN CORPUSCULAR HGB CONC 32.3 g/dL (32.0-36.0); MEAN CORPUSCULAR VOLUME 79 fl (80-97); MONOCYTES % (AUTO) 4.8 % (3-13); PLATELET COUNT 333 10^3/uL (150-450); RED BLOOD COUNT 5.25 10^6/uL (3.72-5.28); RED CELL DISTRIBUTION WIDTH 16.7 % (11.5-14.0); SEGMENTED NEUTROPHILS % (AUTO) 86.6 % (42-78); TOTAL CELLS COUNTED % (AUTO) 100 %; WHITE BLOOD COUNT 19.9 10^3/uL (4.0-10.5)
[2020-05-06 01:50] LABS: ALBUMIN 4.5 g/dL (3.5-5.0); ALKALINE PHOSPHATASE 76 U/L (38-126); ANION GAP 10 (5-19); ASPARTATE AMINO TRANSFERASE 31 U/L (14-36); BILIRUBIN,DIRECT 0.2 mg/dL (0.0-0.4); BILIRUBIN,TOTAL 0.4 mg/dL (0.2-1.3); BLOOD UREA NITROGEN 7 mg/dL (7-20); CALCIUM 9.7 mg/dL (8.4-10.2); CARBON DIOXIDE 25 mmol/L (22-30); CHLORIDE 106 mmol/L (98-107); GLUCOSE 103 mg/dL (75-110); POTASSIUM 4.4 mmol/L (3.6-5.0); TOTAL PROTEIN 7.1 g/dL (6.3-8.2)
--- NOTE | 2020-05-06 02:56 | ER Document Report ---
ED GI/ - General Chief Complaint: Urinary Retention Stated Complaint: DIFFICULTY URINATING Time Seen by Provider: 05/05/20 23:37 Primary Care Provider: [facility] [Provider Group] - Follow up as needed DEREK DÍAZ MD [NO LOCAL MD] - Follow up as needed Mode of Arrival: Ambulatory Information source: Patient Notes: 35-year-old female presented to ED for complaint of urinary retention. She states she has not been able to urinate since 2 PM when she came into the emergency room. She also complained of nausea but no vomiting or fever. She s tates she had teeth pulled on of last week and was taking Vicodin and antibiotics and was not having any bowel movement so she quit taking the Vicodin and took some mag citrate and then was not able to urinate since 2 PM. When she came into the triage area they did cath her at 11:58 PM got 700 mL of urine. Urine came back for no UTI. I did order blood and acute abdomen and IV fluids. CBC came back with elevated white count and after the IV fluids she was not able to urinate and was having severe suprapubic pain. Coy catheter was placed an acute abdomen series was changed to a CT abdomen pelvis with IV contrast. Patient got complete relief from the suprapubic pain with the Ocy catheter and over 600 cc was removed and the catheter was clamped when she started having spasms. Wait a little and then unclamped the Coy. Constitutional: Negative for fever. HENT: Negative for sore throat. Eyes: Negative for visual changes. Cardiovascular: Negative for chest pain. Respiratory: Negative for shortness of breath. Gastrointestinal: Negative for abdominal pain, vomiting or diarrhea. Genitourinary: Patient was having urinary retention after taking laxative for constipation. She was having severe suprapubic pain until straight cath was used to drain the bladder Musculoskeletal: Negative for back pain. Skin: Negative for rash. Neurological: Negative for headaches, weakness or numbness. 10 point ROS negative except as marked above and in HPI. VITAL SIGNS: Within normal limits. GENERAL: No acute distress, non-toxic appearance. HEAD: Normal with no signs of head trauma. EYES: PERRLA, EOMI, conjunctiva normal, no discharge. EARS: Hearing grossly intact. NOSE: Normal. THROAT: Oropharynx is normal. NECK: Normal range of motion, no tenderness, supple, no lymphadenopathy, No adenopathy, no JVD. CHEST: Clear breath sounds bilaterally. No wheezes, rales, or rhonchi. CARDIAC: Regular rate and rhythm. S1 and S2, without murmurs, gallops, or rubs . VASCULAR: No Edema. Peripheral pulses normal and equal in all extremities. ABDOMEN: Normal and soft with no tenderness, no masses or pulsatile masses. GASTROINTESTINAL: Hyperactive bowel sounds normal GENITOURINARY: Normal, No tenderness LYMPATHTIC: No lymphadenopathy noted. MUSCULOSKELETAL: Good range of motion of all major joints. Extremities without clubbing, cyanosis or edema. NEUROLOGICAL: Alert and oriented x 3. No focal sensory or strength deficits. Speech normal. Follows commands appropriately. PSYCHIATRIC: Normal Affect, judgement and mood. SKIN: Normal appearance with no rashes or lesions. TRAVEL OUTSIDE OF THE [place] IN LAST 30 DAYS: No - HPI Patient complains to provider of: Abdominal pain, Other - Urinary retention and constipation Onset: Other - See HPI Timing/Duration: Better - Pain is much better after the Coy catheter Quality of pain: Pressure, Sharp Severity at maximum: Severe Severity in ED: Moderate Pain Level: 2 - Abdomen pain is much better after the Coy but she still has some pain in her teeth Location: Suprapubic LMP: 05/04/2020 Associated symptoms: Constipation, Urinary retention, Other - Pain continues from recent tooth extraction Exacerbated by: Other - States that to taking a laxative and having a large bowel movement she has not been able to urinate. They did a Coy catheter at 1158 got 700 mL out. Relieved by: Other - Coy catheter relieved most of the pain Similar symptoms previously: No Recently seen / treated by doctor: Yes - Related Data Allergies/Adverse Reactions: codeine [Codeine] Adverse Reaction (Intermediate, Verified 05/05/20 23:37) Past Medical History - General Information source: Patient - Social History Smoking Status: Current Every Day Smoker Cigarette use (# per day): Yes - Half pack a day Smoking Education Provided: Yes - 2 minutes Frequency of alcohol use: None Drug Abuse: None Lives with: Family Family History: COPD, Hypertension, Malignancy Patient has suicidal ideation: No Patient has homicidal ideation: No - Past Medical History Cardiac Medical History: Reports: None Pulmonary Medical History: Reports: Hx Asthma EENT Medical History: Reports: None Neurological Medical History: Reports: None Endocrine Medical History: Reports: None Renal/ Medical History: Reports: None Malignancy Medical History: Reports: None GI Medical History: Reports: None Musculoskeletal Medical History: Reports None Skin Medical History: Reports None Psychiatric Medical History: Reports: None Traumatic Medical History: Reports: None Infectious Medical History: Reports: None Past Surgical History: Reports: Hx Gynecologic Surgery - d&c (April 2013), Hx Oral Surgery - Immunizations Immunizations up to date: Yes Hx Diphtheria, Pertussis, Tetanus Vaccination: Yes Hx Pneumococcal Vaccination: 09/13/11 Physical Exam - Vital signs Vitals: Temp Pulse Resp BP Pulse Ox 98.5 F 71 16 128/86 H 95 05/05/20 22:59 05/05/20 22:59 05/05/20 22:59 05/05/20 22:59 05/05/20 22:59 Course - Re-evaluation Re-evalutation: 05/06/20 06:39 Patient recently had oral surgery and had 4 teeth pulled out . She still is on antibiotics for her dental infection. She states she does have some pain in her jaw from the dental extractions. I did discuss the blood work uri ne and CT with Dr Rios she agreed patient could be discharged home to follow-up with primary care and urology. She was discharged home with a Coy catheter is when she came in she had not been able to urinate since 2 PM. They did cath her around 11:00 and removed 700 cc of urine. She was then treated with IV fluids to ensure that she could void and she could not. When she was cathed the second time she had and return of over 600 cc so the Coy catheter was left in place. She was given cath care instructions and instructions to follow-up today or tomorrow with primary care and urology. - Vital Signs Vital signs: Temp Pulse Resp BP Pulse Ox 98.7 F 74 20 127/78 H 98 05/06/20 04:01 05/06/20 04:01 05/06/20 04:01 05/06/20 04:01 05/06/20 04:01 - Laboratory Results Result Diagrams: 05/06/20 01:15 05/06/20 01:15 Laboratory Results Interpreted: 05/06/20 05/06/20 00:00 01:15 WBC 19.9 H MCV 79 L MCH 25.5 L RDW 16.7 H Lymph % (Auto) 8.0 L Absolute Neuts (auto) 17.2 H Seg Neutrophils % 86.6 H Urine Blood MODERATE H Critical Laboratory Results Reviewed: No Critical Results - Radiology Results Critical Radiology Results Reviewed: No Critical Results Discharge - Discharge Clinical Impression: Urinary retention Condition: Stable Disposition: HOME, SELF-CARE Additional Instructions: Urinary Retention Urinary retention is inability to empty the bladder. It can result from a urine infection, or from mechanical problems such as an enlarged prostate gland or swelling of the urethra. Drugs or alcohol can also lead to urine retention. The condition is usually treated by passage of a catheter. If the physician thinks the problem will continue, the catheter may be left in place for a few days. Sometimes drugs are used to stimulate the bladder if the physician feels that inadequate bladder contraction is the cause. If the condition leading to the retention is a chronic one, such as an enlarged prostate, you will be referred to a specialist for further care. Call the physician or return if you develop fever, flank or back pain, pain on urination, or recurrent difficulty passing the urine. You do not have a urinary tract infection. You do have an elevated WBC which could be from your recent dental surgery. Because we gave you fluids and you were still not able to urinate we have put a Coy in you and we will send you home with a Coy catheter. Coy Catheter Care Tube Position: Keep the catheter connected to the drainage tubing at all times. Avoid pulling on the catheter. Keep the drainage tube taped to the mid- thigh, on top of your leg (not underneath it). Be sure there are no kinks or loops in the tube. Keep the drainage bag below the bladder. When in bed, the drainage bag should hang below the abdomen but should not lie on the floor. The drainage bag has hooks at the top so it can be hung on a chair or bed. Daily Cleaning: Wash your hands with soap and water before and after caring for your catheter. Twice a day, clean yourself where the catheter goes into the urethra. Use a warm, soapy wash cloth to clean around the urethral opening and the first few inches of the catheter. Females should wash from front to back to decrease the risk of infection from fecal material. After washing with soap, rinse the area with water. Do not put powder around the catheter. Apply ointment only if instructed by your doctor or nurse. Follow up if you develop fever or chills, flank or abdominal pain, blood in the urine, or if urine is not draining into the catheter. We did complete a CT which showed possible diarrhea illness but you know that you used a laxative because you were constipated and that is why there is fluid in your bowels. FOLLOW-UP CARE: If you have been referred to a physician for follow-up care, call the physicians office for an appointment as you were instructed or within the next two days. If you experience worsening or a significant change in your symptoms, notify the physician immediately or return to the Emergency Department at any time for re-evaluation. Forms: Elevated Blood Pressure, Smoking Cessation Education, Return to Work Referrals: [facility] [Provider Group] - Follow up as needed DEREK DÍAZ MD [NO LOCAL MD] - Follow up as needed
--- NOTE | 2020-05-06 03:28 | RADIOLOGY REPORT (SQ) ---
CT abdomen and pelvis with contrast on 05/06/2020 at 2:38 AM CLINICAL INDICATION: Lower abdominal pain, urinary retention TECHNIQUE: Multiple axial images are obtained throughout the abdomen and pelvis following the administration of IV contrast, 57 mL of Omnipaque 350contrast was administered intravenously without complication. This exam was performed according to our departmental dose-optimization program, which includes automated exposure control, adjustment of the mA and/or kV according to patient size and/or use of iterative reconstruction technique. Total DLP is 507.42 mGy*cm. COMPARISON: None FINDINGS: Abdomen: The lung bases are clear. There are tiny bilateral renal cysts. Solid abdominal organs are otherwise unremarkable. There is no abdominal adenopathy. There is no free fluid or free air within the abdomen. GI tract is fluid filled including the colon suggesting a diarrheal illness and may be related to a gastroenteritis. The abdominal portion of the GI tract is otherwise unremarkable. Pelvis: Coy catheter is noted in the bladder. Pelvic organs appear unremarkable by CT. There is no free fluid in the pelvis. There is no pelvic adenopathy. Pelvic portion of the GI tract including the appendix is otherwise unremarkable. No acute bony abnormality is noted. IMPRESSION: 1. Relative fluid-filled GI tract especially in the colon suggesting a diarrheal illness and may be related to a gastroenteritis. 2. Otherwise essentially unremarkable.
[2020-05-06 04:01] VITALS: BP 127/78
== END 2020-05-06 04:01 | disposition home or self-care (01) ==
LOC: ER 22:50
DX: R33.9 Retention of urine, unspecified (principal); K59.00 Constipation, unspecified; R10.30 Lower abdominal pain, unspecified; R11.0 Nausea; F17.210 Nicotine dependence, cigarettes, uncomplicated; J45.909 Unspecified asthma, uncomplicated; K08.409 Partial loss of teeth, unspecified cause, unspecified class
CPT/HCPCS: 99285; 96360; 51702; 36415; 87086; 85025; 81025; 80053; 81001; 74177; J7030